=== PATIENT | male | born 1995 | race African-American/Black ===

== ENCOUNTER 2022-01-25 03:40 | Emergency (ER) | payer BC, MEDICAID ==
[~2022-01-25] VITALS: Ht 170.2 cm; Wt 86.3 kg
[~2022-01-25 03:40] MED LIST: ALBU2TAB42 PO
[2022-01-25] MEDS ORDERED: BECL10.62 IH (03:42)
[2022-01-25] MEDS: ALBUTEROL SULFATE HFA 90 MCG/PUFF 8 GM INHALER IH ONE (04:05)
[2022-01-25 04:30] LABS: COVID AG,FIA SOURCE NASAL SWAB
[2022-01-25 04:55] VITALS: BP 131/86
== END 2022-01-25 06:20 | disposition home or self-care (01) ==
LOC: EMS 03:45
DX: J45.901 Unspecified asthma with (acute) exacerbation (principal); F17.210 Nicotine dependence, cigarettes, uncomplicated; Z79.899 Other long term (current) drug therapy; Z20.822 Contact with and (suspected) exposure to COVID-19
CPT/HCPCS: 94640; 99283; J3535